=== PATIENT | male | born 1950 | race Caucasian/White ===

== ENCOUNTER 2018-08-11 22:04 | Inpatient (IN) | payer MEDICARE, BC ==
[~2018-08-11] VITALS: Ht 170.2 cm; Wt 98.0 kg
[2018-08-11 22:04] VITALS: BP 132/75
[2018-08-11] MEDS ORDERED: NKM (22:09)
--- NOTE | 2018-08-11 22:27 | Emergency Room Report ---
History of Present Illness General Chief Complaint: Chest Pain Source: Patient, EMS Present Illness HPI Is a 67-year-old male with a history of diet-controlled diabetes. He is also is a smoker. He presents with chief point of chest pain. Onset last night. Pain was substernal without radiation. On and off through the night. Lasting from 30 minutes or an hour each time. He went away today. Pain came back again around 7:30 after he came home from work. Substernal epigastric area. It radiates to his left hand. Worse with exertion. Better with rest. No shortness of breath or diaphoresis. He tried Tums without any relief. He called 911. EMS gave him 4 baby aspirin. He refused nitroglycerin. He is pain -free right now. Pain was 7 out of 10. Allergies: Coded Allergies: PENICILLINS (Verified Allergy, Unknown, 08/11/18) Patient History Past Medical History: see triage record, old chart reviewed, DM - diet controlled Past Surgical History: none Pertinent Family History: none Social History: Reports: smoking Immunizations: other Reviewed Nursing Documentation: PMH: Agreed; PSxH: Agreed Nursing Documentation-PMH Hx Diabetes: Yes - TYPE 2 Review of Systems Eye: Denies: eye pain, blurred vision ENT: Denies: ear pain, nose congestion, throat swelling Respiratory: Denies: cough, shortness of breath Cardiovascular: Reports: chest pain; Denies: palpitations Gastrointestinal: Denies: abdominal pain, diarrhea, nausea, vomiting Musculoskeletal: Denies: back pain, joint pain Skin: Denies: rash Neurological: Denies: headache, numbness Endocrine: Denies: increased thirst, increased urine Hematologic/Lymphatic: Denies: easy bruising All Other Systems: negative except mentioned in HPI Physical Exam Vital Signs Date Time Temp Pulse Resp B/P (MAP) Pulse Ox O2 Delivery O2 Flow Rate FiO2 08/11/18 22:03 98.1 50 18 176/91 99 Room Air vitals with high blood pressure. repeat blood pressure's normal. Sp02 EP Interpretation: reviewed, normal General Appearance: well appearing, no apparent distress, alert Head: normocephalic, atraumatic Eyes: bilateral eye PERRL, bilateral eye EOMI ENT: hearing grossly normal, normal pharynx Neck: full range of motion, supple, no meningismus Respiratory: chest non-tender, lungs clear, normal breath sounds Cardiovascular #1: regular rate, rhythm, no murmur Gastrointestinal: normal bowel sounds, non tender, no mass, no organomegaly, no bruit, non-distended Musculoskeletal: back normal, gait/station normal, normal range of motion Psychiatric: mood/affect normal Skin: warm/dry Medical Decision Making Diagnostic Impression: Primary Impression: Chest pain Qualified Codes: R07.9 - Chest pain, unspecified Additional Impressions: ACS (acute coronary syndrome) Unstable angina ER Course Patient presents with chest pain concerning for ACS/unstable angina. EKG is normal. We'll check labs. Because of his risk factors and history. Will admit versus transfer for further workup. Patient has intermediate troponin concerning for turning positive. He got up to walk to the bathroom and had chest pain. EKG just showed right bundle branch block. No ST elevation. He is pain-free when his rest. This concerning for unstable angina. Lovenox given. Patient will be admitted here under the service of Dr. Duque. I discussed the case with him. EKG Diagnostic Results Rate: normal Rhythm: NSR ST Segments: other - RBBB Rhythm Strip Diag. Results Rhythm Strip Time: 22:27 EP Interpretation: yes Rate: 62 Rhythm: NSR, no PVC's, no ectopy Chest X-Ray Diagnostic Results Chest X-Ray Diagnostic Results : Chest X-Ray Ordered: Yes # of Views/Limited/Complete: 1 View Indication: Chest Pain EP Interpretation: Yes Interpretation: no consolidation, no effusion, no pneumothorax, no acute cardiopulmonary disease Impression: No acute disease Electronically Signed by: Naren Rooney MD Last Vital Signs Date Time Temp Pulse Resp B/P (MAP) Pulse Ox O2 Delivery O2 Flow Rate FiO2 08/11/18 22:03 98.1 50 18 176/91 99 Room Air Status: improved Disposition: ADMITTED INPATIENT Condition: Serious Naren Rooney MD Aug 11, 2018 22:27
[2018-08-11] MEDS ORDERED: Nitroglycerin 2% oint pkt TOPIC ONE (22:30)
[2018-08-11 23:11] LABS: APPEARANCE,URINE CLEAR; BASOPHILS % (AUTO) 1.1 % (0.0-2.0); BILIRUBIN, URINE NEGATIVE (NEGATIVE); EOSINOPHILS % (AUTO) 2.5 % (0.0-3.0); GLUCOSE, URINE (UA) NEGATIVE (NEGATIVE); HEMATOCRIT 41.9 % (42.0-52.0); HEMOGLOBIN 14.2 G/DL (14.2-18.0); KETONES,URINE NEGATIVE (NEGATIVE); LEUKOCYTE ESTERASE ,URINE NEGATIVE (NEGATIVE); LYMPHOCYTES % (AUTO) 34.5 % (20.0-45.0); MEAN CORPUSCULAR VOLUME 93 FL (80-99); MONOCYTES % (AUTO) 6.6 % (1.0-10.0); NEUTROPHILS % (AUTO) 55.3 % (45.0-75.0); NITRITE,URINE NEGATIVE (NEGATIVE); PH,URINE 5 (4.5-8.0); PLATELET COUNT 236 K/UL (150-450); PROTEIN,URINE NEGATIVE (NEGATIVE); RED BLOOD COUNT 4.52 M/UL (4.70-6.10); RED CELL DISTRIBUTION WIDTH 11.7 % (11.6-14.8); UROBILINOGEN,URINE NORMAL MG/DL (0.0-1.0); WHITE BLOOD COUNT 8.2 K/UL (4.8-10.8)
[2018-08-11 23:14] LABS: COLOR,URINE YELLOW
[2018-08-11 23:20] LABS: ANION GAP 6 mmol/L (5-15); BLOOD UREA NITROGEN 17 mg/dL (7-18); CALCIUM 9.4 MG/DL (8.5-10.1); CARBON DIOXIDE 31 MMOL/L (21-32); CHLORIDE 106 MMOL/L (98-107); POTASSIUM 4.1 MMOL/L (3.5-5.1); SODIUM 143 MMOL/L (136-145)
[2018-08-11] MEDS ORDERED: Morphine Sulfate 4mg/ml Inj (IV/IM USE ONLY) IVP ONE (23:30)
[2018-08-11 23:34] LABS: ALANINE AMINOTRANSFERASE 31 U/L (12-78); ALBUMIN 3.6 G/DL (3.4-5.0); ALBUMIN/GLOBULIN RATIO 1.1 (1.0-2.7); ALKALINE PHOSPHATASE 66 U/L (46-116); ASPARTATE AMINO TRANSFERASE 22 U/L (15-37); BILIRUBIN,TOTAL 0.4 MG/DL (0.2-1.0); CKMB 3.5 NG/ML (0.0-3.6); CREATINE KINASE 289 U/L (26-308)
[2018-08-11] MEDS ORDERED: Enoxaparin 100mg Inj SUBQ ONE (23:45)
[2018-08-12] MEDS ORDERED: Sodium Chloride 500ML 500 ML IVLG SCH (00:19)
[2018-08-12] MEDS ORDERED: Morphine Sulfate 4mg/ml Inj (IV/IM USE ONLY) IVP PRN ×4 (00:30→07:30)
[2018-08-12 01:10] VITALS: BP 101/53
[2018-08-12 04:00] VITALS: BP 115/68
[2018-08-12] MEDS ORDERED: Milk of Magnesia 30ml Ud ORAL PRN (07:15)
[2018-08-12] MEDS ORDERED: Morphine Sulfate 2mg/ml Inj IVP PRN (07:15)
[2018-08-12] MEDS ORDERED: Nitroglycerin Subl 0.4mg tab SL PRN (07:30)
[2018-08-12 08:00] VITALS: BP 110/59
[2018-08-12] MEDS: Aspirin Baby 81mg ORAL SCH (09:36)
[2018-08-12] MEDS: Enoxaparin 100mg Inj SUBQ SCH ×2 (09:38→21:31)
--- NOTE | 2018-08-12 11:13 | Diagnostic Imaging Report ---
Indication: Chest pain Technique: One view of the chest Comparison: None Findings: The heart is borderline enlarged. There is mild interstitial congestion. The right costophrenic angle is cut off the exam Impression: Borderline cardiomegaly with mild interstitial congestion
--- NOTE | 2018-08-12 11:32 | History & Physical ---
History and Physical History & Physicial Jimi Duque MD Aug 12, 2018 11:31
[2018-08-12 11:55] VITALS: BP 112/56
[2018-08-12] MEDS: Docusate 100mg cap ORAL SCH ×2 (12:31→21:28)
[2018-08-12 16:00] VITALS: BP 110/59
--- NOTE | 2018-08-12 17:30 | History and Physical Report ---
DATE OF ADMISSION: 08/11/2018 CHIEF COMPLAINT: Chest pain. HISTORY OF PRESENT ILLNESS: This is 67 years old very delightful [place] gentleman with past medical history significant for diabetes type 2, dyslipidemia, denies history of high blood pressure, prior history of coronary disease, who presented to the hospital complaining about chest pain starting yesterday around 7 p.m. He stated that the chest pain initially felt like a pressure pain in the retrosternal area, radiated to the left arm. Initially, he thought that this is indigestion. He took some Tums, however, the pain got progressively worsening, lasted for 30 minutes to 1 hour and subsequently he called the EMS and was brought into the emergency room. The patient received [address] to the hospital, however, refused nitroglycerin. Pain was resolved when he arrived to the emergency room. He said the pain level was 7/10 in intensity. No nausea or vomiting. No diaphoresis. No headache. No double vision. PAST MEDICAL HISTORY/PAST SURGICAL HISTORY: As above. History of borderline diabetes and dyslipidemia. MEDICATIONS: Medications at home none. ALLERGIES: Penicillin. SOCIAL HISTORY: The patient is a smoker half a pack a day, 50 years pack smoker. Denies any substance or alcohol abuse. 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 FAMILY HISTORY: Sister had a history of multiple myeloma. No history of coronary disease or heart attack in the family. REVIEW OF SYSTEMS: Mostly as above. Denies any dysuria, frequency, or hematuria. Denies any hemoptysis or hematochezia. Denies any suicidal or homicidal ideation. Denies any loss of consciousness. Denies any double vision. Complained about chest pressure, has resolved. Denies any loss of bowel or urine incontinence. PHYSICAL EXAMINATION: VITAL SIGNS: On admission from the ER, temperature 98.1, pulse of 50, respirations 18, and blood pressure 176/91. GENERAL: The patient is awake, responsive, in no acute distress. HEAD AND NECK: Pupils are equal and reactive to light. Extraocular movements intact. NECK: Supple. No JVD. LUNGS: Clear. No wheezes or rales. HEART: S1, S2. Regular rhythm. No gallops. ABDOMEN: Soft, nondistended, nontender. Mild obesity. EXTREMITIES: No cyanosis, clubbing, edema. NEUROLOGIC: Cranial nerves II through XII grossly intact. Motor is 5/5 in all extremities. Gait is intact. RECTAL: Refused and deferred. GENITOURINARY: Refused and deferred. PSYCHIATRIC: Mood and affect is intact. LABORATORY AND DIAGNOSTIC DATA: On admission from the ER, sodium 143, potassium 4.1, chloride 106, bicarb 31, BUN is 17, creatinine 1.0, glucose is 130, calcium is 9.4. Total bilirubin of 0.4. AST of 22, ALT of 31. First troponin 0.477, second one 0.786. Total protein is 6.8. Albumin is 3.6. Cholesterol is 180. Urinalysis - ketone is negative, +2 blood, 2 to 4 RBC, moderate mucosa. Urine drug screen is negative. The patient has WBC of 8.2, hemoglobin 14, hematocrit 41, and platelets 236. The patient's EKG was noted to be noted to be in sinus bradycardia, ventricular rate of 54, right bundle-branch block. No ST elevation was noted, however, inverted T-wave was noted in the leads V4, V2, and V3 as well as flattening T-wave in leads 2, 3, and aVF. ASSESSMENT: 1. Elevated troponin with chest pain, most likely secondary to the non-ST elevation MS. 2. Borderline diabetes. 3. Borderline dyslipidemia. 4. Mild obesity. 5. Chronic smoker. PLAN: Admit the patient to telemetry. We will follow up laboratory studies. Cardiac enzymes, 2D echo. Discussed case with Dr. Dr. Augusto Floyd from cardiology. Code status is Full Code. DVT prophylaxis, Lovenox. We will hold off on the beta perla due to the bradycardia and continue on aspirin. Discussed with the patient extensively regarding the care that will be provided. Jimi Duque M.D. DR: CHRIS JOB#: [id number] CC:
--- NOTE | 2018-08-12 18:52 | Cardiology Progress Note ---
Assessment/Plan Assessment/Plan fuyll note dictated transfer center at [facility] called may have bed by tomorrow if nto before heparin asa stain ntp go now bed rest d/w floor sander at [facility] Objective Last 24 Hour Vital Signs Date Time Temp Pulse Resp B/P (MAP) Pulse Ox O2 Delivery O2 Flow Rate FiO2 08/12/18 16:00 67 08/12/18 16:00 97.7 60 16 110/59 (76) 94 08/12/18 12:00 65 08/12/18 11:55 97.9 61 16 112/56 (74) 97 08/12/18 09:00 Nasal Cannula 2.0 08/12/18 08:00 97.7 60 16 110/59 (76) 94 08/12/18 08:00 60 08/12/18 05:34 52 08/12/18 04:00 98.3 58 16 115/68 (84) 95 08/12/18 02:26 59 08/12/18 02:15 98.1 56 18 99/68 99 Nasal Cannula 2.0 08/12/18 02:04 Room Air 08/12/18 01:10 98.7 97 18 101/53 (69) 95 08/12/18 00:02 98.1 08/11/18 22:34 114/94 08/11/18 22:04 98.1 55 18 132/75 99 Room Air 08/11/18 22:04 55 18 Room Air 08/11/18 22:03 98.1 50 18 176/91 99 Room Air Intake and Output 08/11/18 08/12/18 19:00 07:00 Intake Total 240 ml Output Total 100 ml Balance 140 ml Intake Oral 240 ml Output Urine Total 100 ml # Voids 2 Laboratory Tests Test 08/11/18 22:50 08/12/18 02:50 08/12/18 07:04 08/12/18 10:50 White Blood Count 8.2 K/UL (4.8-10.8) Red Blood Count 4.52 M/UL (4.70-6.10) L Hemoglobin 14.2 G/DL (14.2-18.0) Hematocrit 41.9 % (42.0-52.0) L Mean Corpuscular Volume 93 FL (80-99) Mean Corpuscular Hemoglobin 31.3 PG (27.0-31.0) H Mean Corpuscular Hemoglobin Concent 33.8 G/DL (32.0-36.0) Red Cell Distribution Width 11.7 % (11.6-14.8) Platelet Count 236 K/UL (150-450) Mean Platelet Volume 6.7 FL (6.5-10.1) Neutrophils (%) (Auto) 55.3 % (45.0-75.0) Lymphocytes (%) (Auto) 34.5 % (20.0-45.0) Monocytes (%) (Auto) 6.6 % (1.0-10.0) Eosinophils (%) (Auto) 2.5 % (0.0-3.0) Basophils (%) (Auto) 1.1 % (0.0-2.0) Urine Color Yellow Urine Appearance Clear Urine pH 5 (4.5-8.0) Urine Specific [place] 1.020 (1.005-1.035) Urine Protein Negative (NEGATIVE) Urine Glucose (UA) Negative (NEGATIVE) Urine Ketones Negative (NEGATIVE) Urine Blood 2+ (NEGATIVE) H Urine Nitrite Negative (NEGATIVE) Urine Bilirubin Negative (NEGATIVE) Urine Urobilinogen Normal MG/DL (0.0-1.0) Urine Leukocyte Esterase Negative (NEGATIVE) Urine RBC 2-4 /HPF (0 - 0) H Urine WBC 0-2 /HPF (0 - 0) Urine Squamous Epithelial Cells None /LPF (NONE/OCC) Urine Bacteria None /HPF (NONE) Urine Mucus Moderate /LPF (NONE/OCC) H Sodium Level 143 MMOL/L (136-145) Potassium Level 4.1 MMOL/L (3.5-5.1) Chloride Level 106 MMOL/L (98-107) Carbon Dioxide Level 31 MMOL/L (21-32) Anion Gap 6 mmol/L (5-15) Blood Urea Nitrogen 17 mg/dL (7-18) Creatinine 1.0 MG/DL (0.55-1.30) Estimat Glomerular Filtration Rate > 60 mL/min (>60) Glucose Level 130 MG/DL (74-106) H Calcium Level 9.4 MG/DL (8.5-10.1) Total Bilirubin 0.4 MG/DL (0.2-1.0) Aspartate Amino Transf (AST/SGOT) 22 U/L (15-37) Alanine Aminotransferase (ALT/SGPT) 31 U/L (12-78) Alkaline Phosphatase 66 U/L (46-116) Total Creatine Kinase 289 U/L (26-308) Creatine Kinase MB 3.5 NG/ML (0.0-3.6) Creatine Kinase MB Relative Index 1.2 Troponin I 0.477 ng/mL (0.000-0.056) 0.786 ng/mL (0.000-0.056) 1.950 ng/mL (0.000-0.056) Total Protein 6.8 G/DL (6.4-8.2) Albumin 3.6 G/DL (3.4-5.0) Globulin 3.2 g/dL Albumin/Globulin Ratio 1.1 (1.0-2.7) Urine Opiates Screen Negative (NEGATIVE) Urine Barbiturates Screen Negative (NEGATIVE) Phencyclidine (PCP) Screen Negative (NEGATIVE) Urine Amphetamines Screen Negative (NEGATIVE) Urine Benzodiazepines Screen Negative (NEGATIVE) Urine Cocaine Screen Negative (NEGATIVE) Urine Marijuana (THC) Screen Negative (NEGATIVE) Cholesterol Level 180 MG/DL (< 200) Augusto Floyd MD Aug 12, 2018 18:52
[2018-08-12 20:00] VITALS: BP 133/80
--- NOTE | 2018-08-12 20:45 | Consultation ---
DATE OF CONSULTATION: 08/12/2018 CARDIOLOGY CONSULTATION CONSULTING PHYSICIAN: Augusto Floyd M.D. REFERRING PHYSICIAN: Jimi Duque M.D. REASON FOR REFERRAL: Chest pain. HISTORY OF PRESENT ILLNESS: This is a very pleasant 67-year-old gentleman, who has a history of pre-diabetes and tobacco abuse, presented to the hospital last night because of episodes of pain that has been going on for intermittently since the night before. Lapine like indigestion, radiated to the shoulder, maybe in the left arm as well as the right-sided shoulder pain and chest as well. At the present time, he is no longer having pain since he has been in the hospital last night. The troponin has peaked so far and now it peaked, but it is maximum at this time to 1.95. He is not having any chest pain. There is no PND, palpitations, dizziness, or lightheadedness. He is active as he walks around activities. He usually does not have any discomfort and is active except for last night. PAST MEDICAL HISTORY: Pre-diabetes. No history of high blood pressure. No heart attack. No cancer, stroke, hepatitis, tuberculosis, asthma, emphysema, ulcers, kidney problems, liver problems, thyroid problems, anemia, arthritis, HIV or AIDS, blood clots, or prostate problems or any other medical problems. ALLERGIES: He is allergic to penicillin. SOCIAL HISTORY: He smokes less than half a pack a day at the present time. Actually, he used to smoke 1 pack a day. He has been smoking for 50 years. No alcohol. No drugs. He used to work as a restauranteur. REVIEW OF SYSTEMS: GASTROINTESTINAL: There is no nausea, vomiting, diarrhea, or constipation. No bloody or black stool. GENITOURINARY: Negative. PULMONARY SYSTEM: Negative. CONSTITUTIONAL: Negative. NEUROLOGICAL: Negative. PHYSICAL EXAMINATION: GENERAL: Shows to be overweight elderly gentleman, in no respiratory distress. NECK: Supple. No jugular venous distention. No abdominojugular reflux noted. LUNGS: Clear to auscultation and percussion. CARDIAC: S1 is normal. S2 is normal. Regular rate and rhythm. No heaves, thrills, gallops, or rubs noted. ABDOMEN: Soft and nontender. Positive bowel sounds. EXTREMITIES: There is no clubbing, cyanosis, or edema. There is a significant abdominal obesity. LABORATORY VALUES: His first set of cardiac enzyme was 0.447 and subsequently 0.786, and most recently at 10 o'clock this morning 1.95. Repeat pending at this time. The total cholesterol was 180, sodium 142, potassium 4.1, chloride 106, bicarb 31, BUN 17, creatinine 1.0, and glucose of 130. His total protein is 6.8. His white count is 8.3, hemoglobin 14.2, and platelet count of 236,000. Tox screen is negative and urinalysis is fairly unremarkable. He did have a chest x-ray performed today, a borderline cardiomegaly and mild interstitial congestion and this is documented on the EKG. A preliminary echocardiogram shows normal left ventricular systolic function. His electrocardiogram shows right bundle branch block and some conduction defect. No significant ST or T-wave abnormalities. ASSESSMENT: 1. [id number] myocardial infarction. 2. Prediabetes. 3. Tobacco use disorder. 4. Obesity. PLAN: Dr. Duque, this patient was seen in cardiac consultation and the patient does not appear to have any chest pain at the present time. Nevertheless, his symptoms are concerning and I think he needs to undergo cardiac catheterization to see if he needs any percutaneous coronary intervention. To that extent, the patient will be started on anticoagulation with heparin, aspirin, statins, beta-blockers, and nitropaste will be started as well. I have contacted transfer center at [facility] and his name has been placed on the transfer where he hopefully present in the next either tonight or tomorrow morning as I understand if they may have a bed for him to get transferred to. In the meantime, he should stay at bed rest. I have contacted the patient's calculating machine operator, Dr. Garay at [facility] in regard to performing the cardiac catheterization as needed over the weekend or when feasible or necessary. Augusto Floyd M.D. DR: BART JOB#: [id number] CC:
[2018-08-12] MEDS: Zolpidem 5mg tab ORAL PRN (21:28)
[2018-08-12] MEDS: Atorvastatin 80mg tab ORAL SCH (21:28)
[2018-08-12] MEDS ORDERED: Heparin 5000 units/ml inj SUBQ SCH (22:00)
[2018-08-13] VITALS: BP 110/70
[2018-08-13 03:07] LABS: ALANINE AMINOTRANSFERASE 31 U/L (12-78); ALBUMIN 3.3 G/DL (3.4-5.0); ALBUMIN/GLOBULIN RATIO 1.1 (1.0-2.7); ALKALINE PHOSPHATASE 61 U/L (46-116); ANION GAP 8 mmol/L (5-15); ASPARTATE AMINO TRANSFERASE 23 U/L (15-37); BILIRUBIN,TOTAL 0.7 MG/DL (0.2-1.0); BLOOD UREA NITROGEN 16 mg/dL (7-18); CALCIUM 8.7 MG/DL (8.5-10.1); CARBON DIOXIDE 28 MMOL/L (21-32); CHLORIDE 107 MMOL/L (98-107); CREATININE 1.1 MG/DL (0.55-1.30); PHOSPHORUS 3.5 MG/DL (2.5-4.9); POTASSIUM 3.8 MMOL/L (3.5-5.1); SODIUM 143 MMOL/L (136-145)
[2018-08-13 04:00] VITALS: BP 122/70
--- NOTE | 2018-08-13 07:10 | Cardiology Report ---
APPROVED REPORT EXAM: Two-dimensional and M-mode echocardiogram with Doppler and color Doppler. INDICATION Abnormal cardiac function study M-Mode DIMENSIONS IVSd1.6 (0.7-1.1cm)Left Atrium (MM)4.0 (1.6-4.0cm) LVDd4.8 (3.5-5.6cm)Aortic Root3.5 (2.0-3.7cm) PWd1.3 (0.7-1.1cm)Aortic Cusp Exc.1.9 (1.5-2.0cm) LVDs1.9 (2.5-4.0cm) PWs1.9 cm Technically difficult study due to poor acoustic windows. Study quality precludes accurate assessment of regional wall motion. Normal left ventricular chamber size, systolic function and wall motion. Left ventricular ejection fraction estimated to be 60 %. Mild left ventricular hypertrophy. Anterior Echo-free space, may be due to pericardial fat or effusion. All other cardiac chamber sizes are within normal limits. Focal aortic valve sclerosis with adequate cusp excursion. Mildly thickened mitral valve leaflets with normal excursion. Mild mitral annulus and aortic root calcification. Pulmonic valve not well visualized. Normal tricuspid valve structure. IVC is normal in size with physiological collapse. A color flow and spectral Doppler study was performed and revealed: No aortic insufficiency. Mild mitral regurgitation. Mitral diastolic velocities suggest mild left ventricular diastolic dysfunction (Grade I). No tricuspid regurgitation. Tricuspid systolic velocities suggests peak right ventricular systolic pressure of 9 mmHg. No pulmonic regurgitation present.
[2018-08-13 08:00] VITALS: BP 109/70
[2018-08-13] MEDS: Aspirin Baby 81mg ORAL SCH (08:42)
[2018-08-13] MEDS: Docusate 100mg cap ORAL SCH ×2 (08:42→21:06)
[2018-08-13] MEDS: Enoxaparin 100mg Inj SUBQ SCH ×2 (08:45→21:09)
[2018-08-13 12:00] VITALS: BP 116/69
[2018-08-13 16:00] VITALS: BP_SYST 103; BP_SYST 90; BP_DIAS 55; BP_DIAS 56
--- NOTE | 2018-08-13 16:56 | Internal Med Progress Note ---
Subjective Date of Service: Aug 13, 2018 Physician Name Jareth Park Attending Physician Jimi Duque MD Current Medications Medications (Trade) Dose Ordered Sig/Zaire Route PRN Reason Start Time Stop Time Status Last Admin Dose Admin Acetaminophen (Tylenol) 650 mg Q4H PRN ORAL RAMON/T>100.5 08/12/18 07:15 09/11/18 07:14 08/13/18 06:04 Aspirin (ASA) 162 mg DAILY ORAL 08/12/18 09:00 09/11/18 08:59 08/13/18 08:42 Atorvastatin Calcium (Lipitor) 80 mg BEDTIME ORAL 08/12/18 21:00 09/11/18 20:59 08/12/18 21:28 Diphenhydramine HCl (Benadryl) 25 mg Q6H PRN ORAL Itching/Pruritis 08/12/18 07:15 09/11/18 07:14 Docusate Sodium (Colace) 100 mg EVERY 12 HOURS ORAL 08/12/18 09:00 09/11/18 08:59 08/13/18 08:42 Enoxaparin Sodium (Lovenox) 100 mg EVERY 12 HOURS SUBQ 08/12/18 09:00 09/11/18 08:59 08/13/18 08:45 Magnesium Hydroxide (Mom) 30 ml HSPRN PRN ORAL Constipation 08/12/18 07:15 09/11/18 07:14 Morphine Sulfate (Morphine Sulfate) 1 mg Q4H PRN IVP Mild Pain (Pain Scale 1-3) 08/12/18 07:30 08/19/18 07:14 Morphine Sulfate (Morphine Sulfate) 2 mg Q4HR PRN IVP Moderate Pain (Pain Scale 4-6) 08/12/18 07:15 08/19/18 07:14 Morphine Sulfate (Morphine Sulfate) 4 mg Q4H PRN IVP Severe Pain (Pain Scale 7-10) 08/12/18 07:15 08/19/18 07:14 Nitroglycerin (Ntg) 0.4 mg Q5MIN X 3 DOSES PRN SL Prn Chest Pain 08/12/18 07:30 09/11/18 07:29 Ondansetron HCl (Zofran) 4 mg Q6H PRN IVP Nausea & Vomiting 08/12/18 07:15 09/11/18 07:14 Pantoprazole (Protonix) 40 mg DAILY ORAL 08/12/18 09:00 09/11/18 08:59 08/13/18 08:42 Zolpidem Tartrate (Ambien) 5 mg HSPRN PRN ORAL Insomnia 08/12/18 21:00 08/19/18 20:59 08/12/18 21:28 Allergies: Coded Allergies: PENICILLINS (Verified Allergy, Unknown, 08/11/18) ROS Limited/Unobtainable: No Constitutional: Reports: no symptoms HEENT: Reports: no symptoms Cardiovascular: Reports: chest pain Respiratory: Reports: no symptoms Gastrointestinal/Abdominal: Reports: no symptoms Genitourinary: Reports: no symptoms Neurologic/Psychiatric: Reports: no symptoms Subjective 67 YO M admitted with chest pain. Now NSTEMI. Cover for Int Med-Dr Duque. GREGG. Await transfer to [facility] Objective Last Vital Signs Date Time Temp Pulse Resp B/P (MAP) Pulse Ox O2 Delivery O2 Flow Rate FiO2 08/13/18 12:00 71 08/13/18 12:00 98.1 20 116/69 (85) 93 08/12/18 21:00 Nasal Cannula 2.0 Laboratory Tests Test 08/12/18 19:15 08/13/18 02:40 08/13/18 10:50 Troponin I 2.170 ng/mL (0.000-0.056) 1.361 ng/mL (0.000-0.056) 0.806 ng/mL (0.000-0.056) Sodium Level 143 MMOL/L (136-145) Potassium Level 3.8 MMOL/L (3.5-5.1) Chloride Level 107 MMOL/L (98-107) Carbon Dioxide Level 28 MMOL/L (21-32) Anion Gap 8 mmol/L (5-15) Blood Urea Nitrogen 16 mg/dL (7-18) Creatinine 1.1 MG/DL (0.55-1.30) Estimat Glomerular Filtration Rate > 60 mL/min (>60) Glucose Level 133 MG/DL (74-106) H Calcium Level 8.7 MG/DL (8.5-10.1) Phosphorus Level 3.5 MG/DL (2.5-4.9) Magnesium Level 1.7 MG/DL (1.8-2.4) L Total Bilirubin 0.7 MG/DL (0.2-1.0) Aspartate Amino Transf (AST/SGOT) 23 U/L (15-37) Alanine Aminotransferase (ALT/SGPT) 31 U/L (12-78) Alkaline Phosphatase 61 U/L (46-116) Total Protein 6.4 G/DL (6.4-8.2) Albumin 3.3 G/DL (3.4-5.0) L Globulin 3.1 g/dL Albumin/Globulin Ratio 1.1 (1.0-2.7) Intake and Output 08/12/18 08/13/18 19:00 07:00 Intake Total 720 ml 300 ml Balance 720 ml 300 ml Intake Oral 720 ml 300 ml # Voids 3 5 # Bowel Movements 1 Objective PHYSICAL EXAMINATION: GENERAL: The patient is awake, responsive, in no acute distress. HEAD AND NECK: Pupils are equal and reactive to light. Extraocular movements intact. NECK: Supple. No JVD. LUNGS: Clear. No wheezes or rales. HEART: S1, S2. Regular rhythm. No gallops. ABDOMEN: Soft, nondistended, nontender. Mild obesity. EXTREMITIES: No cyanosis, clubbing, edema. NEUROLOGIC: Cranial nerves II through XII grossly intact. Motor is 5/5 in all extremities. Gait is intact. RECTAL: Refused and deferred. GENITOURINARY: Refused and deferred. PSYCHIATRIC: Mood and affect is intact. Assessment/Plan Problem List: (1) NSTEMI (non-ST elevated myocardial infarction) Assessment & Plan: See cardiology note. (2) Coronary artery disease (3) Diabetes mellitus type II, controlled (4) Hypercholesteremia Assessment & Plan: Continue lipitor (5) HTN (hypertension) (6) Chest pain Status: not improved Assessment/Plan Await transfer to [facility] for cardiac cath-see cardiology note. Jareth Park MD Aug 13, 2018 16:56
[2018-08-13 20:00] VITALS: BP 117/80
[2018-08-13] MEDS: Atorvastatin 80mg tab ORAL SCH (21:06)
--- NOTE | 2018-08-13 22:32 | Cardiology Progress Note ---
Assessment/Plan Problem List: (1) Coronary artery disease (2) Hypercholesteremia (3) NSTEMI (non-ST elevated myocardial infarction) (4) HTN (hypertension) (5) Diabetes mellitus type II, controlled Status: stable, progressing Status Narrative Acute nonSTEMI - peak troponin 2.1, now downtrending. EKGs w/ RBBB - no acute ST changes No further CP since admission Assessment/Plan Continue medications -asa, statin , lovenox and start plavix. Hold b blockers, as pt w/ bradycardia. Pt to be transferred to [facility] for cor angiography and possible intervention Subjective ROS Limited/Unobtainable: No Subjective Cardiology - coverage for Dr. Floyd No c/o chest pain. Anxious for transfer Objective Last 24 Hour Vital Signs Date Time Temp Pulse Resp B/P (MAP) Pulse Ox O2 Delivery O2 Flow Rate FiO2 08/13/18 20:00 98.5 64 20 117/80 (92) 94 08/13/18 20:00 71 08/13/18 18:00 Nasal Cannula 2.0 08/13/18 16:00 73 08/13/18 16:00 97.8 65 20 103/56 (72) 95 08/13/18 12:00 71 08/13/18 12:00 98.1 69 20 116/69 (85) 93 08/13/18 12:00 Nasal Cannula 2.0 08/13/18 09:00 Nasal Cannula 2.0 08/13/18 08:00 97.5 86 20 109/70 (83) 95 08/13/18 08:00 84 08/13/18 06:34 98.2 08/13/18 04:00 98.2 72 20 122/70 (87) 94 08/13/18 03:40 77 08/13/18 00:00 74 08/13/18 00:00 98.6 71 20 110/70 (83) 94 General Appearance: WD/WN, no apparent distress, alert EENT: PERRL/EOMI Neck: supple, no JVD Rhythm: NSR Cardiovascular: normal rate, regular rhythm, no gallop/murmur Respiratory/Chest: lungs clear Abdomen: non tender, soft Extremities: no swelling Intake and Output 08/12/18 08/13/18 19:00 07:00 Intake Total 720 ml 300 ml Balance 720 ml 300 ml Intake Oral 720 ml 300 ml # Voids 3 5 # Bowel Movements 1 Laboratory Tests Test 08/13/18 02:40 08/13/18 10:50 Sodium Level 143 MMOL/L (136-145) Potassium Level 3.8 MMOL/L (3.5-5.1) Chloride Level 107 MMOL/L (98-107) Carbon Dioxide Level 28 MMOL/L (21-32) Anion Gap 8 mmol/L (5-15) Blood Urea Nitrogen 16 mg/dL (7-18) Creatinine 1.1 MG/DL (0.55-1.30) Estimat Glomerular Filtration Rate > 60 mL/min (>60) Glucose Level 133 MG/DL (74-106) H Calcium Level 8.7 MG/DL (8.5-10.1) Phosphorus Level 3.5 MG/DL (2.5-4.9) Magnesium Level 1.7 MG/DL (1.8-2.4) L Total Bilirubin 0.7 MG/DL (0.2-1.0) Aspartate Amino Transf (AST/SGOT) 23 U/L (15-37) Alanine Aminotransferase (ALT/SGPT) 31 U/L (12-78) Alkaline Phosphatase 61 U/L (46-116) Troponin I 1.361 ng/mL (0.000-0.056) 0.806 ng/mL (0.000-0.056) Total Protein 6.4 G/DL (6.4-8.2) Albumin 3.3 G/DL (3.4-5.0) L Globulin 3.1 g/dL Albumin/Globulin Ratio 1.1 (1.0-2.7) Yessi Salazar MD Aug 13, 2018 22:32
[2018-08-13] MEDS: Zolpidem 5mg tab ORAL PRN (22:43)
[2018-08-14] VITALS: BP 114/70
[2018-08-14 04:00] VITALS: BP 114/70
[2018-08-14 05:59] LABS: BASOPHILS % (AUTO) 0.5 % (0.0-2.0); EOSINOPHILS % (AUTO) 2.8 % (0.0-3.0); HEMATOCRIT 40.6 % (42.0-52.0); HEMOGLOBIN 13.8 G/DL (14.2-18.0); LYMPHOCYTES % (AUTO) 40.1 % (20.0-45.0); MEAN CORPUSCULAR VOLUME 93 FL (80-99); MONOCYTES % (AUTO) 7.3 % (1.0-10.0); NEUTROPHILS % (AUTO) 49.3 % (45.0-75.0); PLATELET COUNT 244 K/UL (150-450); RED BLOOD COUNT 4.38 M/UL (4.70-6.10); WHITE BLOOD COUNT 8.8 K/UL (4.8-10.8)
[2018-08-14 07:00] LABS: ANION GAP 7 mmol/L (5-15); BLOOD UREA NITROGEN 18 mg/dL (7-18); CALCIUM 8.8 MG/DL (8.5-10.1); CARBON DIOXIDE 25 MMOL/L (21-32); CHLORIDE 111 MMOL/L (98-107); CREATININE 1.1 MG/DL (0.55-1.30); POTASSIUM 3.7 MMOL/L (3.5-5.1); SODIUM 143 MMOL/L (136-145)
[2018-08-14 08:00] VITALS: BP 116/56
[2018-08-14] MEDS: Aspirin Baby 81mg ORAL SCH (08:04)
[2018-08-14] MEDS: Docusate 100mg cap ORAL SCH ×2 (08:05→21:01)
[2018-08-14] MEDS: Enoxaparin 100mg Inj SUBQ SCH (08:07)
[2018-08-14 12:00] VITALS: BP 131/82
--- NOTE | 2018-08-14 14:31 | Cardiology Progress Note ---
Assessment/Plan Problem List: (1) Coronary artery disease (2) Hypercholesteremia (3) NSTEMI (non-ST elevated myocardial infarction) (4) HTN (hypertension) (5) Diabetes mellitus type II, controlled Status: stable, progressing Status Narrative Acute nonSTEMI - peak troponin 2.1, now downtrending. EKGs w/ RBBB - no acute ST changes No new symptoms Assessment/Plan Continue medications -asa, plavix and statin. dc lovenox, pt post ND > 48 hr w/o recurrent sx Hold b blockers, as pt w/ bradycardia. Pt to be transferred to [facility] for cor angiography and possible intervention Subjective ROS Limited/Unobtainable: No Subjective Cardiology - coverage for Dr. Floyd No c/o. Ambulating in halls Objective Last 24 Hour Vital Signs Date Time Temp Pulse Resp B/P (MAP) Pulse Ox O2 Delivery O2 Flow Rate FiO2 08/14/18 09:00 Nasal Cannula 2.0 08/14/18 08:00 97.5 71 20 116/56 (76) 92 08/14/18 08:00 74 08/14/18 04:00 63 08/14/18 04:00 98.5 72 20 114/70 (85) 95 08/14/18 00:00 77 08/14/18 00:00 98.5 67 20 114/70 (85) 94 08/13/18 20:00 98.5 64 20 117/80 (92) 94 08/13/18 20:00 71 08/13/18 18:00 Nasal Cannula 2.0 08/13/18 16:00 73 08/13/18 16:00 97.8 65 20 103/56 (72) 95 General Appearance: WD/WN, no apparent distress, alert EENT: PERRL/EOMI Neck: supple, no JVD Rhythm: NSR Cardiovascular: normal rate, no gallop/murmur Respiratory/Chest: lungs clear Abdomen: non tender, soft Intake and Output 08/13/18 08/14/18 19:00 07:00 Intake Total 300 ml Balance 300 ml Intake Oral 300 ml # Voids 3 Laboratory Tests Test 08/14/18 03:15 White Blood Count 8.8 K/UL (4.8-10.8) Red Blood Count 4.38 M/UL (4.70-6.10) L Hemoglobin 13.8 G/DL (14.2-18.0) L Hematocrit 40.6 % (42.0-52.0) L Mean Corpuscular Volume 93 FL (80-99) Mean Corpuscular Hemoglobin 31.4 PG (27.0-31.0) H Mean Corpuscular Hemoglobin Concent 33.9 G/DL (32.0-36.0) Red Cell Distribution Width 12.0 % (11.6-14.8) Platelet Count 244 K/UL (150-450) Mean Platelet Volume 6.5 FL (6.5-10.1) Neutrophils (%) (Auto) 49.3 % (45.0-75.0) Lymphocytes (%) (Auto) 40.1 % (20.0-45.0) Monocytes (%) (Auto) 7.3 % (1.0-10.0) Eosinophils (%) (Auto) 2.8 % (0.0-3.0) Basophils (%) (Auto) 0.5 % (0.0-2.0) Sodium Level 143 MMOL/L (136-145) Potassium Level 3.7 MMOL/L (3.5-5.1) Chloride Level 111 MMOL/L (98-107) H Carbon Dioxide Level 25 MMOL/L (21-32) Anion Gap 7 mmol/L (5-15) Blood Urea Nitrogen 18 mg/dL (7-18) Creatinine 1.1 MG/DL (0.55-1.30) Estimat Glomerular Filtration Rate > 60 mL/min (>60) Glucose Level 112 MG/DL (74-106) H Calcium Level 8.8 MG/DL (8.5-10.1) Troponin I 0.786 ng/mL (0.000-0.056) Yessi Salazar MD Aug 14, 2018 14:31
--- NOTE | 2018-08-14 15:38 | Internal Med Progress Note ---
Subjective Date of Service: Aug 14, 2018 Physician Name Jareth Park Attending Physician Jimi Duque MD Current Medications Medications (Trade) Dose Ordered Sig/Zaire Route PRN Reason Start Time Stop Time Status Last Admin Dose Admin Acetaminophen (Tylenol) 650 mg Q4H PRN ORAL RAMON/T>100.5 08/12/18 07:15 09/11/18 07:14 08/13/18 06:04 Aspirin (ASA) 162 mg DAILY ORAL 08/12/18 09:00 09/11/18 08:59 08/14/18 08:04 Atorvastatin Calcium (Lipitor) 80 mg BEDTIME ORAL 08/12/18 21:00 09/11/18 20:59 08/13/18 21:06 Clopidogrel Bisulfate (Plavix) 75 mg DAILY ORAL 08/14/18 09:00 09/13/18 08:59 08/14/18 08:05 Diphenhydramine HCl (Benadryl) 25 mg Q6H PRN ORAL Itching/Pruritis 08/12/18 07:15 09/11/18 07:14 Docusate Sodium (Colace) 100 mg EVERY 12 HOURS ORAL 08/12/18 09:00 09/11/18 08:59 08/14/18 08:05 Enoxaparin Sodium (Lovenox) 40 mg EVERY 12 HOURS SUBQ 08/14/18 21:00 09/11/18 08:59 UNV Magnesium Hydroxide (Mom) 30 ml HSPRN PRN ORAL Constipation 08/12/18 07:15 09/11/18 07:14 Morphine Sulfate (Morphine Sulfate) 1 mg Q4H PRN IVP Mild Pain (Pain Scale 1-3) 08/12/18 07:30 08/19/18 07:14 Morphine Sulfate (Morphine Sulfate) 2 mg Q4HR PRN IVP Moderate Pain (Pain Scale 4-6) 08/12/18 07:15 08/19/18 07:14 Morphine Sulfate (Morphine Sulfate) 4 mg Q4H PRN IVP Severe Pain (Pain Scale 7-10) 08/12/18 07:15 08/19/18 07:14 Nitroglycerin (Ntg) 0.4 mg Q5MIN X 3 DOSES PRN SL Prn Chest Pain 08/12/18 07:30 09/11/18 07:29 Ondansetron HCl (Zofran) 4 mg Q6H PRN IVP Nausea & Vomiting 08/12/18 07:15 09/11/18 07:14 Pantoprazole (Protonix) 40 mg DAILY ORAL 08/12/18 09:00 09/11/18 08:59 08/14/18 08:05 Zolpidem Tartrate (Ambien) 5 mg HSPRN PRN ORAL Insomnia 08/12/18 21:00 08/19/18 20:59 08/13/18 22:43 Allergies: Coded Allergies: PENICILLINS (Verified Allergy, Unknown, 08/11/18) ROS Limited/Unobtainable: No Constitutional: Reports: no symptoms HEENT: Reports: no symptoms Cardiovascular: Reports: chest pain Respiratory: Reports: no symptoms Gastrointestinal/Abdominal: Reports: no symptoms Genitourinary: Reports: no symptoms Neurologic/Psychiatric: Reports: no symptoms Subjective 67 YO M admitted with chest pain. Now NSTEMI. Cover for [facility]-Dr Duque. GREGG. Await transfer to [facility] Objective Last Vital Signs Date Time Temp Pulse Resp B/P (MAP) Pulse Ox O2 Delivery O2 Flow Rate FiO2 08/14/18 09:00 Nasal Cannula 2.0 08/14/18 08:00 97.5 71 20 116/56 (76) 92 Laboratory Tests Test 08/14/18 03:15 White Blood Count 8.8 K/UL (4.8-10.8) Red Blood Count 4.38 M/UL (4.70-6.10) L Hemoglobin 13.8 G/DL (14.2-18.0) L Hematocrit 40.6 % (42.0-52.0) L Mean Corpuscular Volume 93 FL (80-99) Mean Corpuscular Hemoglobin 31.4 PG (27.0-31.0) H Mean Corpuscular Hemoglobin Concent 33.9 G/DL (32.0-36.0) Red Cell Distribution Width 12.0 % (11.6-14.8) Platelet Count 244 K/UL (150-450) Mean Platelet Volume 6.5 FL (6.5-10.1) Neutrophils (%) (Auto) 49.3 % (45.0-75.0) Lymphocytes (%) (Auto) 40.1 % (20.0-45.0) Monocytes (%) (Auto) 7.3 % (1.0-10.0) Eosinophils (%) (Auto) 2.8 % (0.0-3.0) Basophils (%) (Auto) 0.5 % (0.0-2.0) Sodium Level 143 MMOL/L (136-145) Potassium Level 3.7 MMOL/L (3.5-5.1) Chloride Level 111 MMOL/L (98-107) H Carbon Dioxide Level 25 MMOL/L (21-32) Anion Gap 7 mmol/L (5-15) Blood Urea Nitrogen 18 mg/dL (7-18) Creatinine 1.1 MG/DL (0.55-1.30) Estimat Glomerular Filtration Rate > 60 mL/min (>60) Glucose Level 112 MG/DL (74-106) H Calcium Level 8.8 MG/DL (8.5-10.1) Troponin I 0.786 ng/mL (0.000-0.056) Intake and Output 08/13/18 08/14/18 19:00 07:00 Intake Total 300 ml Balance 300 ml Intake Oral 300 ml # Voids 3 Objective PHYSICAL EXAMINATION: GENERAL: The patient is awake, responsive, in no acute distress. HEAD AND NECK: Pupils are equal and reactive to light. Extraocular movements intact. NECK: Supple. No JVD. LUNGS: Clear. No wheezes or rales. HEART: S1, S2. Regular rhythm. No gallops. ABDOMEN: Soft, nondistended, nontender. Mild obesity. EXTREMITIES: No cyanosis, clubbing, edema. NEUROLOGIC: Cranial nerves II through XII grossly intact. Motor is 5/5 in all extremities. Gait is intact. RECTAL: Refused and deferred. GENITOURINARY: Refused and deferred. PSYCHIATRIC: Mood and affect is intact. Assessment/Plan Problem List: (1) NSTEMI (non-ST elevated myocardial infarction) Assessment & Plan: See cardiology note. (2) Coronary artery disease (3) Diabetes mellitus type II, controlled (4) Hypercholesteremia Assessment & Plan: Continue lipitor (5) HTN (hypertension) (6) Chest pain Assessment/Plan Await transfer to [facility] for cardiac cath-see cardiology note. Jareth Park MD Aug 14, 2018 15:38
[2018-08-14 16:00] VITALS: BP 123/74
[2018-08-14 20:00] VITALS: BP 105/69
[2018-08-14] MEDS ORDERED: Enoxaparin 40mg Inj SUBQ SCH (21:00)
[2018-08-14] MEDS: Atorvastatin 80mg tab ORAL SCH (21:01)
[2018-08-14] MEDS: Zolpidem 5mg tab ORAL PRN (21:01)
[2018-08-15 04:00] VITALS: BP 125/69
[2018-08-15 04:47] LABS: BASOPHILS % (AUTO) 0.8 % (0.0-2.0); EOSINOPHILS % (AUTO) 4.6 % (0.0-3.0); HEMATOCRIT 39.3 % (42.0-52.0); HEMOGLOBIN 13.4 G/DL (14.2-18.0); LYMPHOCYTES % (AUTO) 41.6 % (20.0-45.0); MEAN CORPUSCULAR VOLUME 93 FL (80-99); MONOCYTES % (AUTO) 6.8 % (1.0-10.0); NEUTROPHILS % (AUTO) 46.1 % (45.0-75.0); PLATELET COUNT 226 K/UL (150-450); RED BLOOD COUNT 4.21 M/UL (4.70-6.10); RED CELL DISTRIBUTION WIDTH 11.4 % (11.6-14.8); WHITE BLOOD COUNT 7.5 K/UL (4.8-10.8)
[2018-08-15 05:16] LABS: ANION GAP 9 mmol/L (5-15); BLOOD UREA NITROGEN 17 mg/dL (7-18); CALCIUM 8.5 MG/DL (8.5-10.1); CARBON DIOXIDE 27 MMOL/L (21-32); CHLORIDE 107 MMOL/L (98-107); CREATININE 0.9 MG/DL (0.55-1.30); POTASSIUM 3.5 MMOL/L (3.5-5.1); SODIUM 143 MMOL/L (136-145)
[2018-08-15 08:00] VITALS: BP 130/63
[2018-08-15] MEDS: Docusate 100mg cap ORAL SCH (08:54)
[2018-08-15] MEDS: Aspirin Baby 81mg ORAL SCH (08:54)
[2018-08-15] MEDS ORDERED: Enoxaparin 40mg Inj SUBQ SCH (09:00)
[2018-08-15 12:00] VITALS: BP 123/78
--- NOTE | 2018-08-15 14:35 | Internal Med Progress Note ---
Subjective Date of Service: Aug 15, 2018 Physician Name Jareth Park Attending Physician Jimi Duque MD Current Medications Medications (Trade) Dose Ordered Sig/Zaire Route PRN Reason Start Time Stop Time Status Last Admin Dose Admin Acetaminophen (Tylenol) 650 mg Q4H PRN ORAL RAMON/T>100.5 08/12/18 07:15 09/11/18 07:14 08/13/18 06:04 Aspirin (ASA) 162 mg DAILY ORAL 08/12/18 09:00 09/11/18 08:59 08/15/18 08:54 Atorvastatin Calcium (Lipitor) 80 mg BEDTIME ORAL 08/12/18 21:00 09/11/18 20:59 08/14/18 21:01 Clopidogrel Bisulfate (Plavix) 75 mg DAILY ORAL 08/14/18 09:00 09/13/18 08:59 08/15/18 08:54 Diphenhydramine HCl (Benadryl) 25 mg Q6H PRN ORAL Itching/Pruritis 08/12/18 07:15 09/11/18 07:14 Docusate Sodium (Colace) 100 mg EVERY 12 HOURS ORAL 08/12/18 09:00 09/11/18 08:59 08/15/18 08:54 Enoxaparin Sodium (Lovenox) 40 mg DAILY SUBQ 08/15/18 09:00 09/14/18 08:59 08/15/18 09:00 Magnesium Hydroxide (Mom) 30 ml HSPRN PRN ORAL Constipation 08/12/18 07:15 09/11/18 07:14 Morphine Sulfate (Morphine Sulfate) 1 mg Q4H PRN IVP Mild Pain (Pain Scale 1-3) 08/12/18 07:30 08/19/18 07:14 Morphine Sulfate (Morphine Sulfate) 2 mg Q4HR PRN IVP Moderate Pain (Pain Scale 4-6) 08/12/18 07:15 08/19/18 07:14 Morphine Sulfate (Morphine Sulfate) 4 mg Q4H PRN IVP Severe Pain (Pain Scale 7-10) 08/12/18 07:15 08/19/18 07:14 Nitroglycerin (Ntg) 0.4 mg Q5MIN X 3 DOSES PRN SL Prn Chest Pain 08/12/18 07:30 09/11/18 07:29 Ondansetron HCl (Zofran) 4 mg Q6H PRN IVP Nausea & Vomiting 08/12/18 07:15 09/11/18 07:14 Pantoprazole (Protonix) 40 mg DAILY ORAL 08/12/18 09:00 09/11/18 08:59 08/15/18 08:54 Zolpidem Tartrate (Ambien) 5 mg HSPRN PRN ORAL Insomnia 08/12/18 21:00 08/19/18 20:59 08/14/18 21:01 Allergies: Coded Allergies: PENICILLINS (Verified Allergy, Unknown, 08/11/18) ROS Limited/Unobtainable: No Constitutional: Reports: no symptoms HEENT: Reports: no symptoms Cardiovascular: Reports: chest pain Respiratory: Reports: no symptoms Gastrointestinal/Abdominal: Reports: no symptoms Genitourinary: Reports: no symptoms Neurologic/Psychiatric: Reports: no symptoms Subjective 67 YO M admitted with chest pain. Now NSTEMI. Cover for Int Med-Dr Duque. GREGG. Patient wants to leave Against medical advise Objective Last Vital Signs Date Time Temp Pulse Resp B/P (MAP) Pulse Ox O2 Delivery O2 Flow Rate FiO2 08/15/18 12:00 59 08/15/18 12:00 97.6 20 123/78 (93) 93 08/15/18 09:00 Room Air 08/14/18 21:00 2.0 Laboratory Tests Test 08/15/18 03:05 White Blood Count 7.5 K/UL (4.8-10.8) Red Blood Count 4.21 M/UL (4.70-6.10) L Hemoglobin 13.4 G/DL (14.2-18.0) L Hematocrit 39.3 % (42.0-52.0) L Mean Corpuscular Volume 93 FL (80-99) Mean Corpuscular Hemoglobin 31.7 PG (27.0-31.0) H Mean Corpuscular Hemoglobin Concent 34.0 G/DL (32.0-36.0) Red Cell Distribution Width 11.4 % (11.6-14.8) L Platelet Count 226 K/UL (150-450) Mean Platelet Volume 6.9 FL (6.5-10.1) Neutrophils (%) (Auto) 46.1 % (45.0-75.0) Lymphocytes (%) (Auto) 41.6 % (20.0-45.0) Monocytes (%) (Auto) 6.8 % (1.0-10.0) Eosinophils (%) (Auto) 4.6 % (0.0-3.0) H Basophils (%) (Auto) 0.8 % (0.0-2.0) Sodium Level 143 MMOL/L (136-145) Potassium Level 3.5 MMOL/L (3.5-5.1) Chloride Level 107 MMOL/L (98-107) Carbon Dioxide Level 27 MMOL/L (21-32) Anion Gap 9 mmol/L (5-15) Blood Urea Nitrogen 17 mg/dL (7-18) Creatinine 0.9 MG/DL (0.55-1.30) Estimat Glomerular Filtration Rate > 60 mL/min (>60) Glucose Level 117 MG/DL (74-106) H Calcium Level 8.5 MG/DL (8.5-10.1) Intake and Output 08/14/18 08/15/18 19:00 07:00 Intake Total 660 ml 450 ml Balance 660 ml 450 ml Intake Oral 660 ml 450 ml # Voids 7 3 # Bowel Movements 2 1 Objective PHYSICAL EXAMINATION: GENERAL: The patient is awake, responsive, in no acute distress. HEAD AND NECK: Pupils are equal and reactive to light. Extraocular movements intact. NECK: Supple. No JVD. LUNGS: Clear. No wheezes or rales. HEART: S1, S2. Regular rhythm. No gallops. ABDOMEN: Soft, nondistended, nontender. Mild obesity. EXTREMITIES: No cyanosis, clubbing, edema. NEUROLOGIC: Cranial nerves II through XII grossly intact. Motor is 5/5 in all extremities. Gait is intact. RECTAL: Refused and deferred. GENITOURINARY: Refused and deferred. PSYCHIATRIC: Mood and affect is intact. Assessment/Plan Problem List: (1) NSTEMI (non-ST elevated myocardial infarction) Assessment & Plan: See cardiology note. (2) Coronary artery disease (3) Diabetes mellitus type II, controlled (4) Hypercholesteremia Assessment & Plan: Continue lipitor (5) HTN (hypertension) (6) Chest pain Assessment/Plan Await transfer to [facility] for cardiac cath-see cardiology note-no bed available-await insurance approval. Patient offered transfer to [facility] [place]. Patient requests to sign against medical advise. Jareth Park MD Aug 15, 2018 14:35
--- NOTE | 2018-08-17 13:51 | Discharge Summary ---
Discharge Summary Discharge Summary _ DATE OF ADMISSION: 08/11/2018 DATE OF DISCHARGE: 08/15/2018 Patient signed AGAINST MEDICAL ADVICE REASON FOR ADMISSION: 67 years old male with past medical history of borderline diabetes and dyslipidemia, smoker, presented to emergency department complaining of chest pain. Chest pain initially felt like a pressure in the retrosternal area , radiating to the left arm. Initially patient thought it was indigestion , and he took TUMS for relief. However the pain was getting progressively worse, lasting from 20 minutes to an hour . Patient subsequently called paramedics, and was brought to emergency room for further evaluation. Patient received [address] to the emergency room . Patient declined nitroglycerin. Pain resolved upon his presentation to the emergency department. No nausea, no vomiting, no diaphoresis ,no headache. Upon evaluation vital signs revealed elevated blood pressure 176/91 , heart rate 50. No leukocytosis , stable hemoglobin hematocrit. Troponin elevated 0.477. ECG revealed right bundle branch block, no ST elevation. Chest x-ray revealed borderline cardiomegaly with mild interstitial congestion. Patient admitted with diagnoses elevated troponin with chest pain, most likely secondary to non-STEMI, borderline diabetes , borderline dyslipidemia, mild obesity , chronic smoker. CONSULTANTS: certified cytotechnologist Dr. Floyd [facility]: Patient admitted to telemetry floor. Patient started on anticoagulation with Lovenox and antiplatelet therapy with Aspirin. No beta-blockage initiated, given bradycardia. Echocardiogram revealed preserved ejection fraction of 60% with mild left ventricular hypertrophy. No evidence of wall motion abnormality. Cardiology closely followed. Troponin initially trending up with peak of 2.17 and then started to go down , last troponin before signing AGAINST MEDICAL ADVICE -0.786. Statin continued . Plavix later was added to existing regimen. Patient was on the transfer list to [facility] for coronary angiogram and possible intervention. Pain management was addressed. Nitroglycerin was on board as needed. Bowel regimen instituted. GI prophylaxis provided. Blood sugar was closely monitored and remained stable. Blood pressure was closely monitored, remained stable. Initially elevated blood pressure only on presentation, resolved. Supplemental oxygen and pulmonary toilet were on board as needed. Pulse oximetry was stable on room air. Patient was counseled on smoking cessation. Chest pain resolved , no shortness of breath . No bed availability at [facility]. Patient was offered to be transferred to [facility] for cardiac intervention. Patient decided to sign AGAINST MEDICAL ADVICE and later go to [facility] by himself. The risks and consequences of signing AGAINST MEDICAL ADVICE were discussed with patient in detail. Patient verbalized understanding, nevertheless signed AMA form and left. FINAL DIAGNOSES: NSTEMI Hypertension Hypercholesterolemia Coronary artery disease Diabetes mellitus type 2 , controlled Chronic smoker I have been assigned to dictate discharge summary for this account. I was not involved in the patient's management. Glory Cruz NP Aug 17, 2018 13:50
== END 2018-08-15 14:31 | disposition left against medical advice (07) | DRG 282 ==
LOC: EDBD 22:04 → EMR 22:22 → 2W 23:31 → EDBEDREQ 23:34
DX: I21.4 Non-ST elevation (NSTEMI) myocardial infarction (principal); I10 Essential (primary) hypertension; F17.200 Nicotine dependence, unspecified, uncomplicated; E78.00 Pure hypercholesterolemia, unspecified; E11.9 Type 2 diabetes mellitus without complications; I25.10 Atherosclerotic heart disease of native coronary artery without angina pectoris; Z88.0 Allergy status to penicillin
CPT/HCPCS: 36415; 71045; 80048; 80053; 80307; 81003; 82465; 82550; 82553; 83735; 84100; 84484; 85025; 93005; 93306; 96374; 96375; 99285; J2405